=== PATIENT | female | born 1945 | race Caucasian/White ===

== ENCOUNTER 2016-05-29 11:08 | Day surgery (SDC) | payer OTHER, BC ==
[~2016-05-29] VITALS: Ht 171.4 cm; Wt 116.0 kg
[~2016-05-29 11:08] MED LIST: CARDIZEM120 MG PO; CARDIZEM60 MG PO; CRESTOR5 MG PO; GLIMEPIRIDE4 MG PO; METFORMIN HCL1000 MG PO; RELAFEN750 MG PO; TRADJENTA5 MG PO
[2016-05-29 12:01] LABS: POINT-OF-CARE METER ID UU13113696
[2016-05-29 15:53] LABS: POINT-OF-CARE METER ID UU13113819
== END 2016-05-29 17:30 | disposition home or self-care (01) ==
LOC: CATH 11:08
PROVIDERS: Internal Medicine Cardiovascular Disease
PROC: 025K3ZZ Destruction of Right Ventricle, Percutaneous Approach (ICD-10-PCS; principal; 2016-05-29)
DX: I47.1 Supraventricular tachycardia (principal); E78.5 Hyperlipidemia, unspecified; E11.9 Type 2 diabetes mellitus without complications; I10 Essential (primary) hypertension
CPT/HCPCS: 82948; C1730; C1766; C1894; J1200; J2250; J2310; J3010; J7050; S0020

== ENCOUNTER 2017-08-06 15:49 | Inpatient (IN) | payer OTHER, BC ==
[~2017-08-06] VITALS: Ht 171.4 cm; Wt 117.9 kg
[2017-08-06 16:23] LABS: BASOPHIL (%) 0.2 % (0-1); EOSINOPHIL (%) 1.5 % (0-5); EOSINOPHIL COUNT 0.1 K/uL (0-0.3); HEMATOCRIT 42.6 % (36.0-46.0); HEMOGLOBIN 14.5 G/DL (11.9-15.5); IMMATURE GRANULOCYTE (%) 1.2 % (0.0-0.7); LYMPHOCYTE (%) 25.4 % (15-42); LYMPHOCYTE COUNT 2.1 K/uL (1.0-2.8); MCH 30.7 PG (29.0-34.0); MCV 90.1 FL (83-99); MONOCYTE (%) 6.2 % (3-12); MONOCYTE COUNT 0.5 K/uL (0-0.8); NEUTROPHIL (%) 65.5 % (45-76); NEUTROPHIL COUNT 5.3 K/uL (1.8-6.4); PLATELET COUNT 262 K/uL (156-360); RBC DIS.WIDTH-CV 13.3 % (11.8-14.6); RBC DIS.WIDTH-SD 43.9 % (39-53); RED BLOOD COUNT 4.73 M/uL (3.80-5.20); WHITE BLOOD COUNT 8.1 K/uL (4.1-10.2)
[2017-08-06 16:51] LABS: AMYLASE 32 IU/L (1-118); CHLORIDE 101 MEQ/L (99-109); POTASSIUM 4.1 MEQ/L (3.7-5.4); SODIUM 138 MEQ/L (136-147)
[2017-08-06 16:57] LABS: CREATININE 0.9 MG/DL (0.6-1.3); GFR ESTIMATE (CALCULATED) > 59 mL/min/; GLUCOSE 328 mg/dL (70-99); LIPASE 52 U/L (1.0-51.0); SERUM ETHYL ALCOHOL < 10 mg/dL; UREA NITROGEN (BUN) 19 mg/dL (9-23)
[2017-08-06 17:27] LABS: APPEARANCE CLEAR ((CLEAR)); BILIRUBIN NEGATIVE; BLOOD NEGATIVE; COLOR YELLOW ((YELLOW)); GLUCOSE (STRIP) >=500; KETONES NEGATIVE; LEUKOCYTES NEGATIVE; NITRITE NEGATIVE; PROTEIN (STRIP) NEGATIVE; SPECIFIC GRAVITY 1.029 (1.000-1.030); UCUL ADDED? NO; UROBILINOGEN 0.2 MG/DL (0.2-1.0)
[2017-08-06 17:37] LABS: AMPHETAMINE NEGATIVE (500 ng/mL); BARBITURATES NEGATIVE (200 ng/mL); BENZODIAZEPINES NEGATIVE (150 ng/mL); BUPRENORPHINE NEGATIVE (10 ng/mL); COCAINE NEGATIVE (150 ng/mL); METHADONE NEGATIVE (200 ng/mL); METHAMPHETAMINE NEGATIVE (500 ng/mL); OPIATES (MORPHINE) NEGATIVE (100 ng/mL); OXYCODONE NEGATIVE (100 ng/mL); PHENCYCLIDINE NEGATIVE (25 ng/mL); PROPOXYPHENE NEGATIVE (300 ng/mL); THC CANNABINOIDS NEGATIVE (50 ng/mL); TRICYCLIC ANTIDEPRESSANTS NEGATIVE (300 ng/mL)
[2017-08-06 17:42] LABS: TROP-I INTERPRETATION NEGATIVE; TROPONIN-I < 0.01 ng/mL (0.0-0.30)
[2017-08-06] MEDS ORDERED: CYANOCOBALAM1000 MCG PO (17:47)
[2017-08-06] MEDS ORDERED: VITAMIN D31000 UNIT PO (17:47)
[2017-08-06] MEDS ORDERED: FISH OIL 1,0001 EAC7 PO (17:47)
[2017-08-07] VITALS: BP 159/76
[2017-08-07 03:57] VITALS: BP 176/80
[2017-08-07 06:17] LABS: HEMOGLOBIN 12.8 G/DL (11.9-15.5); MCH 30.2 PG (29.0-34.0); MCHC 33.7 G/DL (30.0-36.0); MCV 89.6 FL (83-99); PLATELET COUNT 225 K/uL (156-360); RBC DIS.WIDTH-CV 13.7 % (11.8-14.6); RED BLOOD COUNT 4.24 M/uL (3.80-5.20)
[2017-08-07 06:41] LABS: ALBUMIN 3.6 G/DL (3.2-4.8); ALKALINE PHOSPHATASE 63 IU/L (3-129); ALT (GPT) 23 IU/L (3-49); AST (GOT) 19 IU/L (2-34); CHLORIDE 103 MEQ/L (99-109); CREATININE 0.8 MG/DL (0.6-1.3); GFR ESTIMATE (CALCULATED) > 59 mL/min/; GLUCOSE 276 mg/dL (70-99); SODIUM 137 MEQ/L (136-147); TOTAL BILIRUBIN 0.8 MG/DL (0.0-1.0); TOTAL PROTEIN 6.2 G/DL (6.4-8.3); UREA NITROGEN (BUN) 17 mg/dL (9-23)
[2017-08-07 08:25] VITALS: BP 156/74
[2017-08-07 12:00] VITALS: BP 134/70
[2017-08-07 13:01] LABS: TROP-I INTERPRETATION NEGATIVE; TROPONIN-I < 0.01 ng/mL (0.0-0.30)
[2017-08-07 16:40] VITALS: BP 160/72
[2017-08-07 19:04] VITALS: BP 152/73
[2017-08-08 00:34] VITALS: BP 156/74
[2017-08-08 05:18] VITALS: BP 160/72
[2017-08-08 05:30] VITALS: BP 150/70
[2017-08-08 06:07] LABS: BASOPHIL (%) 0.3 % (0-1); EOSINOPHIL (%) 2.4 % (0-5); EOSINOPHIL COUNT 0.2 K/uL (0-0.3); HEMATOCRIT 38.9 % (36.0-46.0); HEMOGLOBIN 12.9 G/DL (11.9-15.5); IMMATURE GRANULOCYTE (%) 0.2 % (0.0-0.7); LYMPHOCYTE (%) 29.1 % (15-42); LYMPHOCYTE COUNT 1.8 K/uL (1.0-2.8); MCH 29.9 PG (29.0-34.0); MCHC 33.2 G/DL (30.0-36.0); MCV 90.3 FL (83-99); MONOCYTE (%) 9.7 % (3-12); MONOCYTE COUNT 0.6 K/uL (0-0.8); NEUTROPHIL (%) 58.3 % (45-76); NEUTROPHIL COUNT 3.7 K/uL (1.8-6.4); PLATELET COUNT 221 K/uL (156-360); RBC DIS.WIDTH-CV 13.3 % (11.8-14.6); RBC DIS.WIDTH-SD 44.2 % (39-53); RED BLOOD COUNT 4.31 M/uL (3.80-5.20); WHITE BLOOD COUNT 6.3 K/uL (4.1-10.2)
[2017-08-08 06:29] LABS: CHLORIDE 101 MEQ/L (99-109); CREATININE 0.8 MG/DL (0.6-1.3); GFR ESTIMATE (CALCULATED) > 59 mL/min/; GLUCOSE 228 mg/dL (70-99); SODIUM 135 MEQ/L (136-147); UREA NITROGEN (BUN) 17 mg/dL (9-23)
[2017-08-08 08:00] VITALS: BP 135/67
[2017-08-08 10:06] LABS: HEMOGLOBIN A1c (GLYCOHEMOGLOB) 10.3 % (Below 5.7)
[2017-08-08] MEDS ORDERED: COLACE100 MG PO (10:37)
[2017-08-08] MEDS ORDERED: NORCO 5/3251 TABLET PO (10:37)
[2017-08-08] MEDS ORDERED: LIDODERM 5% P1 PATCH TD (10:37)
[2017-08-08 12:00] VITALS: BP 146/69
== END 2017-08-08 15:30 | disposition home health service (06) | DRG 184 ==
LOC: EME 15:49 → EDOF 18:16 → 3EAST 18:16 → ENRESERV 18:19 → 3EAST 23:13
PROVIDERS: Emergency Medicine; Hospitalist; Internal Medicine Cardiovascular Disease; Physician Assistant; Surgery
PROC: 0HQEXZZ Repair Left Lower Arm Skin, External Approach (ICD-10-PCS; principal; 2017-08-06)
DX: S22.22XA Fracture of body of sternum, initial encounter for closed fracture (principal); S32.019A Unspecified fracture of first lumbar vertebra, initial encounter for closed fracture; S32.029A Unspecified fracture of second lumbar vertebra, initial encounter for closed fracture; S20.212A Contusion of left front wall of thorax, initial encounter; S51.812A Laceration without foreign body of left forearm, initial encounter; S80.10XA Contusion of unspecified lower leg, initial encounter; S10.93XA Contusion of unspecified part of neck, initial encounter; V48.5XXA Car driver injured in noncollision transport accident in traffic accident, initial encounter; R55 Syncope and collapse; E11.9 Type 2 diabetes mellitus without complications; I10 Essential (primary) hypertension; E04.2 Nontoxic multinodular goiter; M50.321 Other cervical disc degeneration at C4-C5 level; M51.36 Other intervertebral disc degeneration, lumbar region; Z96.651 Presence of right artificial knee joint; E66.9 Obesity, unspecified; Z68.41 Body mass index [BMI] 40.0-44.9, adult; Z79.84 Long term (current) use of oral hypoglycemic drugs; Z98.84 Bariatric surgery status
CPT/HCPCS: 70450; 71045; 71260; 72125; 72129; 72132; 73560; 73590; 74177; 80048; 80053; 81003; 82150; 82565; 82948; 83036; 83690; 84484; 84520; 85025; 85027; 86850; 86870; 86900; 86901; 86905; 86920; 93005; 99281; 99285; G0480; J1170; J1815; J7120